=== PATIENT | male | born 1970 | race Caucasian/White ===

== ENCOUNTER 2016-07-14 19:20 | Emergency (ER) | payer MEDICAID, MEDICARE ==
[~2016-07-14] VITALS: Ht 175.3 cm; Wt 99.1 kg
[2016-07-14 19:34] VITALS: BP 124/86; PULSE 96; RESP 16; O2SAT 98
--- NOTE | 2016-07-14 19:34 | ED.REPORT ---
HPI-Psychiatric Illness Date of Service July 14, 2016 ED Provider: Miguelito Mart MD Pt is a 45 y/o male w/ a hx of unspecified psychotic illnesses presenting to the ED via police c/o paranoia onset 3 months ago. At current time the patient is not suicidal but is very paranoid and has been exhibiting psychotic symptoms for the past 3-4 months.He believes the neighbors in his apartment complex were angry with him and follow him around. He moved from [place] to [place] to live with a friend because of this fear. He has been here for 3 days and reports that voices are telling him that the friends he is staying with are going to be hurt because of him. These thoughts caused him to leave all of his possessions at his friend's house and he started walking down the road. This has apparently happened once before in 2011 and at that time he was started on an antipsychotic (he cannot recall which one) which worked well and he was on it for 1 year. His symptoms were resolved until 3 months ago. He c/o associated stress, anxiety, insomnia, decreased appetite, increased THC and alcohol use. He states that he is convinced that his paranoia is real and that because of his partial blindness his sense of hearing is increased which makes him think the auditory hallucinations are real. There are physical complaints. Nursing Notes Stated Complaint: SUICIDAL Chief Complaint: Psychiatric Complaint Nursing Notes Reviewed: Yes Allergies: Coded Allergies: Penicillins (Verified Allergy, Unknown, 07/14/16) Scheduled Duloxetine (Cymbalta) 20 Mg Capsule Unknown Dose PO DAILY Propranolol HCl (Propranolol HCl) 10 Mg Tablet Unknown Dose PO BID Trazodone (Trazodone) 100 Mg Tablet 100 MG PO HS Scheduled PRN Hydroxyzine HCl (HydrOXYzine Hcl) 50 Mg Tablet 50 MG PO TID PRN PRN For Anxiety Tizanidine (Tizanidine) 4 Mg Capsule 2 MG PO QID PRN PRN For Spasm General Time Seen by MD: 19:33 Chief Complaint Paranoid Hx Obtained From: Patient, Police Arrived By: Police Onset Occurred: More than a week ago... (3 months) Symptom Duration: Since onset Progression Since Onset: Constant Severity: Current: No pain currently Severity: Maximum: No pain Recent Healthcare: Previous diagnosis Similar Sx Previous: Yes Risk-Psychiatric Illness Suicide Risk Stratification RF Statements: Risk factors N/A Past Medical History Past Medical History Legally blind Unspecified psychotic illnesses Past Surgical History None reported Smoking History Unknown if Ever Smoker Social History Drug Use: THC Ambulatory Status Independent Review of Systems Constitutional: Denies: Chills, Fever Respiratory: Denies: Non-productive cough, Shortness of breath Cardiovascular: Denies: Chest pain, Dyspnea on exertion GI: Denies: Abdominal pain, Nausea, Vomiting Psychiatric: Reports: Anxiety, Change mental status, Delusional, Hallucinations , auditory, Insomnia, Stress, Suicidal ideation Complete sys rev & neg: except as marked. Physical Exam Initial Vital Signs Vital Signs (First) Date Time Temp Pulse Resp B/P Pulse Ox O2 Delivery O2 Flow Rate FiO2 07/14/16 19:34 36.9 96 16 124/86 98 Room Air Initial VS: Reviewed Head / Eyes: Atraumatic, Normocephalic, PERRL ENT: Mucous membranes moist, Conjunctiva normal, No scleral icterus Neck: Supple, Full range of motion Respiratory: Breath sounds normal, Clear to auscultation, No respiratory distress Cardiovascular: Regular rate & rhythm, Heart sounds normal, Intact distal pulses Abdomen / GI: Soft, Non-tender, No guarding, No rebound, No distention Extremities: Vascular intact, Neuro intact, No swelling, No tenderness Skin: Warm, Dry, No cyanosis General/Constitutional: Awake, Alert, No acute distress, Cooperative, Not toxic appearing Neurologic: Oriented X3, Speech NL, No motor deficits, No sensory deficits, Cerebellar NL, Memory NL Psychiatric: Affect NL, Mood NL, Not suicidal, Not homicidal, No hallucinations , Cognitive function NL Abnormal Thinking / Perception: Positive: Delusions - paranoid Calm Not agitated Moderate insight into the delusional nature of his symptoms Interpretation & Diagnostics Lab Results Interpretation Result Diagram: 07/14/16 1950 07/14/16 1950 Test 07/14/16 19:50 07/14/16 19:52 White Blood Count 7.9th/mm3 (3.8-10.1) Red Blood Count 4.60mil/mm3 (4.40-5.80) Hemoglobin 14.8g/dL (13.8-17.2) Hematocrit 41.8% (41.0-50.0) Mean Corpuscular Volume 90.9fL (81-100) Mean Corpuscular Hemoglobin 32.2pg (27.0-35.0) Mean Corpuscular Hemoglobin Concent 35.4% (32.0-37.0) Red Cell Distribution Width 12.6% (12.3-15.4) Platelet Count 210bil/L (150-400) Neutrophils (%) (Auto) 77.7% (40-74) Lymphocytes (%) (Auto) 11.8% (14-46) Monocytes (%) (Auto) 8.8% (4-12) Eosinophils (%) (Auto) 1.3% (0-5) Basophils (%) (Auto) 0.3% (0-3) Sodium Level 138mEq/L (134-144) Potassium Level 3.4mEq/L (3.5-5.2) Chloride Level 98mEq/L (97-108) Carbon Dioxide Level 24mmol/L (18-29) Blood Urea Nitrogen 6mg/dL (6-24) Creatinine 1.23mg/dL (0.76-1.27) Estimat Glomerular Filtration Rate 68mL/min (>59) Glucose Level 114mg/dL (60-99) Calcium Level 9.1mg/dL (8.5-10.1) Total Bilirubin 0.5mg/dL (0.0-1.2) Aspartate Amino Transf (AST/SGOT) 22U/L (0-50) Alanine Aminotransferase (ALT/SGPT) 25U/L (0-44) Alkaline Phosphatase 50U/L (25-150) Total Protein 7.0g/dL (6.4-8.4) Albumin 4.3g/dL (3.4-5.0) Thyroid Stimulating Hormone (TSH) 2.680uIU/mL (0.450-4.500) [place] Top Tube Received (Received) Hold Urine Received (Received) Re-Eval/Medical Decision Med Decision/Clinical Course Pt is a 45 y/o male w/ a hx of unspecified psychotic illnesses presenting to the ED via police c/o paranoia onset 3 months ago. At current time the patient is not suicidal but is very paranoid and has been exhibiting psychotic symptoms for the past 3-4 months.He believes the neighbors in his apartment complex were angry with him and follow him around. He moved from [place] to [place] to live with a friend because of this fear. He has been here for 3 days and reports that voices are telling him that the friends he is staying with are going to be hurt because of him. These thoughts caused him to leave all of his possessions at his friend's house and he started walking down the road. This has apparently happened once before in 2011 and at that time he was started on an antipsychotic (he cannot recall which one) which worked well and he was on it for 1 year. His symptoms were resolved until 3 months ago. He c/o associated stress, anxiety, insomnia, decreased appetite, increased THC and alcohol use. He states that he is convinced that his paranoia is real and that because of his partial blindness his sense of hearing is increased which makes him think the auditory hallucinations are real. There are physical complaints. Here in the emergency department the patient is afebrile stable vital signs and examination as above. Labs notable as below: CBC: Unremarkable CMP: Mild hypokalemia with K+ of 3.4, otherwise unremarkable TSH within normal limits Urine drug screen positive for marijuana only Breathalyzer: 0 Patient seen and evaluated by emergency department social media analyst. Per her evaluation and my assessment the patient is suffering from significant delusions of being followed and persecution resulting in him moving from state to state. I do not see any indication that he presents an immediate risk of harm to himself or others though he has some insight into his mental illness and is seeking help. He has reportedly been on antipsychotics in the past though does not know what. In discussing this with him he feels that these helped. I believe that the patient would likely dramatically benefit from formal psychiatric evaluation and starting antipsychotic medications. There is no bed immediately available at this hospital or in the region though somewhat I can gather there will likely be a bed on the mental health service tomorrow. Patient remained stable and in no apparent distress and was signed out to oncoming physician with plan for likely admission. Consultation : Consulted With: community outreach worker Call Returned at: 20:47 Worship Director: Will see patient, Agrees with jeniffer, Agrees with plan Note: Will attempt to arrange placement. Reports that the psychiatrist will see him in the morning and admit if there is no placement during the night. Counseled Regarding: Diagnosis, Lab results Discharge & Departure Impression: Primary Impression: Psychosis Psychosis type: delusional disorder Qualified Code: F22 - Delusional disorders Additional Impression: Paranoia Discharge Condition All VS Reviewed: Yes Condition: Stable Referrals: Aki Hernandez MD (Family) Care Transferred to: Aki Lincoln Attestation Portions of this note were transcribed by Sp Rausch. I, Dr. Mackenzie personally performed the history, physical exam and medical decision-making; I reviewed and confirmed the accuracy of the information in the transcribed note. Signed by Latonia Orozco, 07/14/161999 copies to: Aki Hernandez MD, Beck O MD July 14, 2016 19:34 SP RAUSCH July 14, 2016 19:35
[2016-07-14 19:58] LABS: BASOPHILS % (AUTO) 0.3 % (0-3); EOSINOPHILS % (AUTO) 1.3 % (0-5); MONOCYTES % (AUTO) 8.8 % (4-12); Mean Corpuscular Hemoglobin 32.2 pg (27.0-35.0); Mean Corpuscular Volume 90.9 fL (81-100); NEUTROPHILS % (AUTO) 77.7 % (40-74); Platelet Count 210 bil/L (150-400)
[2016-07-14] MEDS ORDERED: DULO20CA PO (20:05)
[2016-07-14] MEDS ORDERED: TIZA4CAP8 PO (20:05)
[2016-07-14] MEDS ORDERED: HYDR50TA76 PO (20:05)
[2016-07-14] MEDS ORDERED: TRAZ-118 PO (20:05)
[2016-07-14] MEDS ORDERED: PROP10TA8 PO (20:05)
[2016-07-15 00:55] VITALS: BP 112/78; PULSE 83; RESP 16; O2SAT 97
[2016-07-15 06:44] VITALS: BP 120/75; PULSE 54; RESP 16; O2SAT 99
[2016-07-15 09:18] VITALS: BP 127/77; PULSE 60; RESP 16; O2SAT 98
[2016-07-15 13:15] VITALS: BP 110/79; PULSE 76; RESP 16; O2SAT 96
[2016-07-15 15:07] VITALS: BP 110/79; PULSE 76; RESP 16; O2SAT 96
== END 2016-07-15 15:08 | disposition other institution (70) ==
LOC: SED 19:20
DX: F22 Delusional disorders (principal); F43.9 Reaction to severe stress, unspecified; F41.9 Anxiety disorder, unspecified; G47.00 Insomnia, unspecified; F12.90 Cannabis use, unspecified, uncomplicated; R44.0 Auditory hallucinations; H54.8 Legal blindness, as defined in USA; Z72.89 Other problems related to lifestyle; Z88.0 Allergy status to penicillin
CPT/HCPCS: 36415; 80053; 81002; 82075; 84443; 85025; 90791; 99285; Q0177